=== PATIENT | male | born 1990 | race Caucasian/White ===

== ENCOUNTER 2017-06-11 20:07 | Emergency (ER) | payer MEDICAID ==
[~2017-06-11] VITALS: Ht 188 cm; Wt 77.1 kg
[~2017-06-11 20:07] MED LIST: BACTROBAN2% TP; GENTAMICIN O5 ML/BOT OP; IBUPROFEN 600M600 MG PO; KEFLEX 500MG.500 MG PO; MINOCYCLINE 10100 MG PO; NAPROXEN SODIU500 MG PO; NOMEDS XX; PREDNISONE 20MG20 MG PO; SEPTRA DS 800 M1 TAB PO; TESSALON PERLE100 MG PO; ZITHROMAX Z PA250 MG PO
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
[2017-06-11 21:56] VITALS: BP 131/85
== END 2017-06-11 21:57 | disposition home or self-care (01) ==
LOC: ER 20:07
PROC: 0HQ0XZZ Repair Scalp Skin, External Approach (ICD-10-PCS; principal; 2017-06-11)
DX: S01.01XA Laceration without foreign body of scalp, initial encounter (principal); S06.0X0A Concussion without loss of consciousness, initial encounter; X99.8XXA Assault by other sharp object, initial encounter; Z72.0 Tobacco use

== ENCOUNTER 2017-06-24 18:50 | Emergency (ER) | payer MEDICAID ==
[2017-06-25 11:03] VITALS: BP 143/79
== END 2017-06-24 19:05 | disposition home or self-care (01) ==
LOC: UTC 18:50
DX: S01.01XD Laceration without foreign body of scalp, subsequent encounter (principal)